=== PATIENT | female | born 1990 | race Hispanic/Latino ===

== ENCOUNTER 2018-10-11 19:03 | Emergency (ER) | payer OTHER ==
[2018-10-11 19:31] LABS: Urine Blood 3+ (NEG); Urine Glucose NEGATIVE (NEG); Urine Protein NEGATIVE (NEG); Urine Specific Gravity 1.015 (1.005-1.030); Urine pH 6.5 (5.0-7.0)
[2018-10-11 19:32] LABS: Urine Specific Gravity 1.015 (1.005-1.030)
[2018-10-11 19:51] LABS: Absolute Lymphocytes (CBC) 1.5 K/uL (0.7-4.9); Absolute Monocytes 0.4 K/uL (0.1-1.3); Absolute Neutrophil 3.1 K/uL (1.8-8.0); Basophils % 0.8 % (0-1.3); Eosinophils % 1.3 % (0-4.4); Hematocrit 35.5 % (36.0-45.0); MCH 30.1 pg (27.0-35.0); MCV 87.5 fL (80-100); MPV 9.4 fL (7.6-11.3); Monocytes % 7.6 % (3.3-12.3); RBC Red Blood Cell Count 4.06 M/uL (3.86-4.86)
--- NOTE | 2018-10-11 20:31 | RAD REPORT ---
EXAM DESCRIPTION: US - TRANSVAG OB - 10/11/2018 8:16 pm CLINICAL HISTORY: with vaginal bleeding COMPARISON: None FINDINGS: Uterus is retroverted measuring 6 x 4 x 6 centimeters. A sac is present within the endomet rium measuring 4 x 2 x 4 millimeters. A yolk sac within this is not seen. A pole is not visuali zed. Fibroid is not seen. Ovaries are normal in size and echotexture. 2 centimeter left ovarian cyst is present. No significant free fluid IMPRESSION: Small sac within the endometrium. This may represent a gestational sac associated with a normal early intrauterine . Other considerations include an incomplete and pseudo gestational sac associated with an ectopic . This should all be correlated clinically and wi th serial beta HCG levels. Followup endovaginal sonogram in 10 days is recommended
--- NOTE | 2018-10-11 21:13 | EDPHYS ---
Physician Documentation [facility] Name: Kaylee Zambrano Age: 28 yrs Sex: Female : 1990 Arrival Date: 10/11/2018 Time: 19:08 Bed 6 Private MD: ED Physician Joni Pierre HPI: 10/11 21:04 This 28 yrs old Female presents to ER via Ambulatory with complaints of gs Vaginal Bleeding, + Preg <12wks. 21:04 The patient presents to the emergency department with vaginal bleeding, that is light. gs Previous pregnancies: in previous pregnancies patient has had. Associated signs and symptoms: Pertinent negatives: abdominal pain, chest pain, dysuria, fever, shortness of breath, vaginal discharge, vomiting. The patient has not experienced similar symptoms in the past. [employer]: 19:13 LMP 08/09/2018 aj Historical: - Allergies: 19:13 No Known Allergies; aj - Home Meds: 19:13 None [Active]; aj - PMHx: 19:13 None; aj - PSHx: 19:13 None; aj - Immunization history:: Adult Immunizations up to date. - Social history:: Smoking status: Patient/guardian denies using tobacco. - Ebola Screening: : Patient negative for fever greater than or equal to 101.5 degrees Fahrenheit, and additional compatible Ebola Virus Disease symptoms Patient denies exposure to infectious person Patient denies travel to an Ebola-affected area in the 21 days before illness onset No symptoms or risks identified at this time. ROS: 21:04 All other systems are negative. gs Exam: 21:04 Head/Face: Normocephalic, atraumatic. Eyes: Pupils equal round and reactive to light, gs extra-ocular motions intact. Lids and lashes normal. Conjunctiva and sclera are non-icteric and not injected. Cornea within normal limits. Periorbital areas with no swelling, redness, or edema. ENT: Nares patent. No nasal discharge, no septal abnormalities noted. Tympanic membranes are normal and external auditory canals are clear. Oropharynx with no redness, swelling, or masses, exudates, or evidence of obstruction, uvula midline. Mucous membranes moist. Neck: Trachea midline, no thyromegaly or masses palpated, and no cervical lymphadenopathy. Supple, full range of motion without nuchal rigidity, or vertebral point tenderness. No Meningismus. Chest/axilla: Normal chest wall appearance and motion. Nontender with no deformity. No lesions are appreciated. Cardiovascular: Regular rate and rhythm with a normal S1 and S2. No gallops, murmurs, or rubs. Normal PMI, no JVD. No pulse deficits. Respiratory: Lungs have equal breath sounds bilaterally, clear to auscultation and percussion. No rales, rhonchi or wheezes noted. No increased work of breathing, no retractions or nasal flaring. Abdomen/GI: Soft, non-tender, with normal bowel sounds. No distension or tympany. No guarding or rebound. No evidence of tenderness throughout. Back: No spinal tenderness. No costovertebral tenderness. Full range of motion. Skin: Warm, dry with normal turgor. Normal color with no rashes, no lesions, and no evidence of cellulitis. MS/ Extremity: Pulses equal, no cyanosis. Neurovascular intact. Full, normal range of motion. Neuro: Awake and alert, GCS 15, oriented to person, place, time, and situation. Cranial nerves II-XII grossly intact. Motor strength 5/5 in all extremities. Sensory grossly intact. Cerebellar exam normal. Normal gait. 21:04 Constitutional: The patient appears alert, awake. Vital Signs: 19:13 BP 118 / 76; Pulse 72; Resp 19; Temp 97.5; Pulse Ox 100% on R/A; Weight 66.68 kg; aj Height 5 ft. 3 in. (160.02 cm); 21:21 BP 107 / 79; Pulse 68; Resp 16 S; Temp 98.9(O); Pulse Ox 100% on R/A; Pain 0/10; bb 19:13 Body Mass Index 26.04 (66.68 kg, 160.02 cm) aj MDM: 19:30 Patient medically screened. gs 21:04 Differential diagnosis: threatened Ab, inevitable Ab, complete Ab, ectopic . gs Data reviewed: vital signs, nurses notes. Counseling: I had a detailed discussion with the patient and/or guardian regarding: the historical points, exam findings, and any diagnostic results supporting the discharge/admit diagnosis, lab results, radiology results, the need for outpatient follow up, an OB/Gyne specialist. Response to treatment: the patient's symptoms have markedly improved after treatment, and as a result, I will discharge patient. 10/11 19:27 Order name: Urine Dipstick--Ancillary (enter results) em1 10/11 19:28 Order name: Urine --Ancillary (enter results) em1 10/11 19:32 Order name: Urine Dipstick-Ancillary; Complete Time: 19:33 EDPR 10/11 19:32 Order name: Urine --Ancillary; Complete Time: 19:33 EDPR 10/11 19:33 Order name: Quantitative Hcg 10/11 19:33 Order name: Abo/rh Typing 10/11 19:26 Order name: Urine Dipstick-Ancillary (obtain specimen); Complete Time: 19:26 mt 10/11 19:26 Order name: Urine Test (obtain specimen); Complete Time: 19:26 mt 10/11 19:33 Order name: CBC with Diff 10/11 19:33 Order name: US Pelvis Complete 10/11 19:52 Order name: CBC with Automated Diff; Complete Time: 20:14 EDPR 10/11 20:08 Order name: HCG, Quantitative; Complete Time: 20:14 [facility] 10/11 20:32 Order name: US; Complete Time: 21:04 EDPR 10/11 20:33 Order name: ABO/RH typing; Complete Time: 21:04 [facility] 10/11 19:33 Order name: IV Saline Lock; Complete Time: 19:34 10/11 19:33 Order name: Labs collected and sent; Complete Time: 19:34 gs 10/11 19:33 Order name: NPO; Complete Time: 19:34 gs Administered Medications: No medications were administered Disposition: 10/11/18 21:11 Discharged to Home. Impression: Threatened . - Condition is Stable. - Discharge Instructions: Threatened Miscarriage, Vaginal Bleeding During , First Trimester. - Medication Reconciliation Form, Thank You Letter, Antibiotic Education, Prescription Opioid Use form. - Follow up: London Burgess MD; When: 2 - 3 days; Reason: Re-evaluation by your physician. Signatures: Dispatcher [employer] [facility] Megha Sharma RN RN aj Ballard, Brenda, RN RN bb Thompson, Moriah mt Starr, Gregory, MD MD gs Corrections: (The following items were deleted from the chart) 21:22 21:11 10/11/2018 21:11 Discharged to Home. Impression: Threatened . Condition bb is Stable. Forms are Medication Reconciliation Form, Thank You Letter, Antibiotic Education, Prescription Opioid Use. Follow up: London Burgess; When: 2 - 3 days; Reason: Re-evaluation by your physician. gs
--- NOTE | 2018-10-11 21:13 | ER ---
Nurse's Notes 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 Patient reports positive UPT at home. Transition of care: patient was not received from another setting of care. Onset of symptoms was October 11, 2018. Risk Assessment: Do you want to hurt yourself or someone else? Patient reports no desire to harm self or others. Initial Sepsis Screen: Does the patient meet any 2 criteria? No. Patient's initial sepsis screen is negative. Does the patient have a suspected source of infection? No. Patient's initial sepsis screen is negative. Care prior to arrival: None. 19:12 Method Of Arrival: Ambulatory aj 19:12 Acuity: JUAN 3 aj Triage Assessment: 19:13 General: Appears in no apparent distress. comfortable, Behavior is calm, cooperative, aj appropriate for age. Pain: Denies pain. Neuro: Level of Consciousness is awake, alert, obeys commands, Oriented to person, place, time, situation, Appropriate for age. Respiratory: Airway is patent Respiratory effort is even, unlabored, Respiratory pattern is regular, symmetrical. : Reports vaginal bleeding that is bright red, spotty. Derm: Skin is pink, warm \T\ dry. normal. 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 - Social history:: Smoking status: Patient/guardian denies using tobacco. - Ebola Screening: : Patient negative for fever greater than or equal to 101.5 degrees Fahrenheit, and additional compatible Ebola Virus Disease symptoms Patient denies exposure to infectious person Patient denies travel to an Ebola-affected area in the 21 days before illness onset No symptoms or risks identified at this time. Screenin:30 Abuse screen: Denies threats or abuse. Nutritional screening: No deficits noted. bb Tuberculosis screening: No symptoms or risk factors identified. Fall Risk None identified. Assessment: 19:30 Obstetrical Assessment: Patient reports vaginal bleeding. General: Appears in no bb apparent distress. comfortable, Behavior is calm, cooperative. Pain: Denies pain. Neuro: Level of Consciousness is awake, alert, obeys commands, Oriented to person, place, time, situation. Cardiovascular: No deficits noted. Respiratory: Respiratory effort is even, unlabored. GI: No signs and/or symptoms were reported involving the gastrointestinal system. : Reports vaginal bleeding that is. Derm: Skin is pink, warm \T\ dry. Musculoskeletal: Circulation, motion, and sensation intact. 21:20 Reassessment: Patient and/or family updated on plan of care and expected duration. Pain bb level reassessed. Patient is alert, oriented x 3, equal unlabored respirations, skin warm/dry/pink. pt verbalized understanding of and agrees to plan of care discharge instructions given pt ambulated with steady gait to exit accompanied by family. Vital Signs: 19:13 BP 118 / 76; Pulse 72; Resp 19; Temp 97.5; Pulse Ox 100% on R/A; Weight 66.68 kg; aj Height 5 ft. 3 in. (160.02 cm); 21:21 BP 107 / 79; Pulse 68; Resp 16 S; Temp 98.9(O); Pulse Ox 100% on R/A; Pain 0/10; bb 19:13 Body Mass Index 26.04 (66.68 kg, 160.02 cm) ED Course: 19:08 Patient arrived in ED. es 19:13 Triage completed. aj 19:13 Arm band placed on right wrist. Patient placed in an exam room. aj 19:16 Joni Pierre MD is Attending Physician. 19:30 Patient has correct armband on for positive identification. Bed in low position. Call bb light in reach. Side rails up X 1. Adult w/ patient. Pulse ox on. NIBP on. 19:30 Initial lab(s) drawn, by me, sent to lab. Urine collected: clean catch specimen. bb Inserted saline lock: 20 gauge in right antecubital area, using aseptic technique. Blood collected. 19:34 Joanna Dowell RN is Primary Nurse. bb 19:35 Urine --Ancillary (enter results) Sent. bb 19:35 Urine Dipstick--Ancillary (enter results) Sent. bb 21:11 London Burgess MD is Referral Physician. gs 21:22 No provider procedures requiring assistance completed. IV discontinued, intact, bb bleeding controlled, No redness/swelling at site. Pressure dressing applied. Administered Medications: No medications were administered Outcome: 21:11 Discharge ordered by . gs 21:22 Discharged to home ambulatory, with family. bb 21:22 Condition: stable 21:22 Discharge instructions given to patient, Instructed on discharge instructions, follow up and referral plans. Demonstrated understanding of instructions, follow-up care. 21:22 Patient left the ED. bb Signatures: Megha Sharma, RN RN Karissa Perales Brenda RN RN Joni Vázquez MD MD
== END 2018-10-11 21:22 | disposition home or self-care (01) ==
LOC: ER 19:03
DX: O20.0 Threatened abortion (principal); Z3A.00 Weeks of gestation of pregnancy not specified
CPT/HCPCS: 36415; 76813; 81003; 81025; 84702; 85025; 86900; 86901; 99283